=== PATIENT | female | born 1950 | race Caucasian/White ===

== ENCOUNTER → 2018-03-18 | Outpatient (CLI) | payer BC, MEDICARE ==
[~2018-03-18] MED LIST: ASPI81EC PO; EVAMIST TOP; OMEP20ER PO; POTA10T PO; POTCHL10ER PO; PREG50 PO; SPIR25 PO; ZOLP10 PO
== END | disposition home or self-care (01) ==
LOC: LAB 09:17 → LAB SHORT 09:17
PROVIDERS: Obstetrics & Gynecology Gynecology
DX: Z12.72 Encounter for screening for malignant neoplasm of vagina (principal)
CPT/HCPCS: 87624; G0123

== ENCOUNTER 2020-04-07 06:55 | Day surgery (SDC) | payer BC, MEDICARE ==
[~2020-04-07] VITALS: Ht 160 cm; Wt 107.4 kg
[~2020-04-07 06:55] MED LIST changes: +PREG100 PO; +PROM25 PO; +SPIR50 PO; +Voltaren100 GM TOP
--- NOTE | 2020-04-07 07:19 | NUR ---
Ambulatory in Day Surgery. History, Chart, Medications and Allergies reviewed before start of procedure. Patient confirms NPO status and agrees with scheduled surgery. Patient States Post-Procedure ride home has been arranged.
--- NOTE | 2020-04-07 11:20 | NUR ---
Dressing to procedure site clean, dry, intact with no visible drainage, swelling, erythema or bruising noted. placed abdominal binder without difficulty with pt able to roll. able to DBC. pt weaned off oxygen 5 minutes after ariving to step down. Patient up to Ambulate independently. Gait steady. Discharge instructions reviewed with patient. Patient verbalizes understanding. Copy given to patient to take home. Patient States Post-Procedure ride home has been arranged. Discharged via wheelchair to private car for ride home. all belonings returned to patient. call out to ride home.
== END 2020-04-07 23:16 | disposition home or self-care (01) ==
LOC: ORSCMMR 06:55 → ORD 08:45 → ORSCMMR 23:16
PROVIDERS: Surgery
PROC: 0WUF0JZ Supplement Abdominal Wall with Synthetic Substitute, Open Approach (ICD-10-PCS; principal; 2020-04-07 08:45)
DX: K43.0 Incisional hernia with obstruction, without gangrene (principal); I10 Essential (primary) hypertension; E78.5 Hyperlipidemia, unspecified; K21.9 Gastro-esophageal reflux disease without esophagitis; E66.01 Morbid (severe) obesity due to excess calories; Z68.41 Body mass index [BMI] 40.0-44.9, adult; Z79.899 Other long term (current) drug therapy
CPT/HCPCS: C1781; J0690; J1100; J1885; J2250; J2370; J2405; J2704; J2710; J2765; J3010; J7120